=== PATIENT | male | born 1970 | race African-American/Black ===

== ENCOUNTER 2024-07-14 06:11 | Emergency (ER) | payer SELFPAY ==
[2024-07-14 06:33] LABS: #Basophils 0.04 10x3/uL (0.0-0.2); %Eosinophils 7.3 % (0.0-10.0); %Lymphocytes 36.4 % (21.0-51.0); %Monocytes 11.6 % (0.0-10.0); %Neutrophils 43.2 % (42.0-75.0); Hematocrit 50.8 % (42.0-52.0); Hemoglobin 16.5 g/dL (14.0-18.0); Mean Corpuscular HGB CONC 32.5 g/dL (32.0-36.0); Mean Corpuscular Hemoglobin 26.4 pg (27.0-31.0); Mean Corpuscular Volume 81.2 fL (78.0-98.0); Platelet Count 265 10x3/uL (130-400); RBC Distribution Width 13.8 % (11.5-14.5); Red Blood Cell (RBC) Count 6.26 mill/uL (4.70-6.10)
[2024-07-14] MEDS ORDERED: Ondansetron PF 4 MG/2 ML Vial ONE (06:58)
[2024-07-14] MEDS ORDERED: Pantoprazole 40 MG VIAL ONE (06:58)
[2024-07-14 06:59] LABS: ALT (SGPT) 19 U/L (8-55); AST (SGOT) 19 U/L (5-34); Albumin 4.1 g/dL (3.5-5.0); Alkaline Phosphatase 55 U/L (40-110); Anion Gap 15 mmol/L (10-20); BUN (Urea Nitrogen) 9 mg/dL (8.4-25.7); Bilirubin, Total 0.9 mg/dL (0.2-1.2); Calc. Creatinine Clearance 0 mL/min (70-130); Calcium 9.2 mg/dL (7.8-10.44); Carbon Dioxide 22 mmol/L (22-29); Chloride 106 mmol/L (98-107); Estimated GFR 77; Globulin 3.1 g/dL (2.4-3.5); Glucose 104 mg/dL (70-105); Lipase 23 U/L (8-78); Potassium 3.9 mmol/L (3.5-5.1); Protein, Total 7.2 g/dL (6.0-8.3); Sodium 139 mmol/L (136-145)
[2024-07-14] MEDS ORDERED: Iopamidol 370 76% 100 ML VIAL ONE (12:40)
== END 2024-07-14 07:28 | disposition home or self-care (01) ==
LOC: ERS 06:11
DX: R10.84 Generalized abdominal pain (principal); I10 Essential (primary) hypertension; F17.210 Nicotine dependence, cigarettes, uncomplicated
CPT/HCPCS: 74177; 80053; 83690; 85025; 86141; 96374; 96375; J2405; J2470; Q9967